=== PATIENT | male | born 1970 | race Caucasian/White ===

== ENCOUNTER 2016-09-15 14:41 | Emergency (ER) | payer OTHER ==
[~2016-09-15 14:41] MED LIST: ALBUTEROL MININEB NEB; ALBUTEROL17 GM INH; CLARITIN10 M2 PO; COMBIVENT INH14.7 GM; FLONASE 0.05% N16 G1; LISINOPRIL20 MG PO; NIFEDICAL PO; NO MEDICATIONS; PREDNISONE10 MG PO; SPIRIVA18 MCG INH; ULTRAM PO; VITAMIN D250000 UNIT PO
== END 2016-09-15 15:42 | disposition home or self-care (01) ==
LOC: SED 14:41
DX: L02.212 Cutaneous abscess of back [any part, except buttock and flank] (principal); J45.909 Unspecified asthma, uncomplicated; I10 Essential (primary) hypertension; F17.200 Nicotine dependence, unspecified, uncomplicated; Z88.0 Allergy status to penicillin; Z88.8 Allergy status to other drugs, medicaments and biological substances; Z79.899 Other long term (current) drug therapy
CPT/HCPCS: 10060; 87070; 87205; 99283